=== PATIENT | female | born 1990 | race Caucasian/White ===

== ENCOUNTER 2016-12-03 13:27 | Emergency (ER) | payer OTHER ==
[~2016-12-03] VITALS: Ht 162.6 cm; Wt 54.4 kg
[~2016-12-03 13:27] MED LIST: ANTIVERT 25MG #1 PAC PO; FIORICET 50-301 EACH PO
[2016-12-03 13:32] VITALS: BP 113/76
--- NOTE | 2016-12-03 13:52 | ED INFLUENZA/URI COMPLAINT ---
History of Present Illness General Chief Complaint: General Adult Stated Complaint: LILLY, COUGH N/V/D WITH FEVER Source: patient, old records Exam Limitations: no limitations Vital Signs & Intake/Output Vital Signs & Intake/Output Vital Signs Date Time Temp Pulse Resp B/P Pulse O2 O2 Flow FiO2 Ox Delivery Rate 12/03 1332 98.2 85 20 113/76 98 Room Air Allergies Coded Allergies: NO KNOWN ALLERGIES (06/10/12) Reconcile Medications Ondansetron (Zofran Odt) 4 MG TAB.RAPDIS 1 TAB SL TID PRN NAUSEA Robitussin AC (Guaifenesin-Codeine Syrup) 200 MG-20 MG/10 ML LIQUID 10 ML PO Q6HR PRN COUGH Triage Note: PT TO ED C/O HEADACHE, COUGH, FEVER, SORE THROAT SINCE SUNDAY. SAW MD ON SUNDAY, WAS NOT GIVEN AND MEDS. PT STATES SHE STARTED WITH N/V/D LAST NIGHT. AFEBRILE. Triage Nurses Notes Reviewed? yes Onset: Abrupt Duration: day(s): (1), constant Timing: recent history Severity: moderate Severity Numbers: 7 No Modifying Factors: none Associated Symptoms: headache, nasal congestion, nasal drainage, sore throat, N/ V/D : No Patient currently breastfeeds: No HPI: 26-year-old female presents to emergency room complaining of multiple episodes of nausea vomiting and diarrhea since last night associated with sore throat and rhinorrhea congestion and generalized bodyaches for the past 4 days. She was seen by her primary care physician earlier this week and diagnosed with a virus. She's been using [id number] medications without improvement. No sick contacts at home with similar symptoms she denies any abdominal pain urinary symptoms fevers or chills. Patient reports a nonproductive cough no shortness of breath no chest pain. She denies any black or bloody stools no hematemesis no recent antibiotic use (ROBBY WILLINGHAM,LAYO) Past History Travel History Traveled to [place] past 21 day No Medical History Any Pertinent Medical History? 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 No (LAYO VILLALOBOS) Review of Systems Review of Systems Constitutional: Reports: see HPI. All Other Systems: Reviewed and Negative Comments Review of systems: See HPI, All other systems negative. Constitutional, no chills no fever, no malaise HEENT: No visual changes sore throat congestion, Cardiovascular: No chest pain , no palpitation , Skin, no rashes, no change in skin Respiratory: No dyspnea no cough no sputum GI: nausea vomiting, diarrhea, : No dysuria No hematuria, no frequency, no discharge Muscle skeletal: No joint pain, no joint swelling, no back pain, no neck pain, Neurologic: No numbness headache Psych: No stress . Heme/endocrine: No bruising no bleeding Immunology: No lymphadenopathy (LAYO VILLALOBOS) Physical Exam Physical Exam General Appearance: well developed/nourished, no apparent distress, alert, awake Ears, Nose, Throat: moist mucous membrane, hearing grossly normal, Tympanic normal, pharynx normal, nasal congestion Comments: Well-developed well-nourished person in no acute distress Head/Face: Atraumatic, no maxillary/frontal sinus tenderness, no facial swelling Eyes: PERRL, EOMI, no conjunctival injection. No nystagmus Ear:External auditory canal and Tympanic membranes clear, no erythema, no FB. Nose: atraumatic.Normal inspection: No bleeding Throat: Moist mucous membranes.Pharynx normal. No pharyngeal erythema/exudate seen. No stridor/drooling or assymetry. No swelling or edema. Neck: Supple, no lymphadenopathy, FROM Cardiovascular: Regular rate and rhythms no murmurs rubs Respiratory: No respiratory distress. Patient speaking in full complete sentences. Breath sounds clear to auscultation bilaterally: NO W/R/R Abdomen: Soft, nontender nondistended, no appreciable organomegaly. Normal bowel sounds. No rebound/guarding, Extremity: No edema, full range of motion of extremities Neuro: Alert oriented x3, motor sensory normal, There were no obvious focal neurologic abnormalities. Skin: No appreciable rash on exposed skin, skin is warm and dry. Psych: Mood and affect is normal, memory and judgment is normal. Core Measures Severe Sepsis Present: No Septic Shock Present: No (LAYO VILLALOBOS) Progress Differential Diagnosis: influenza, otitis, pneumonia, pharyngitis, sinusitis, GASTROENTERITIS, DEHYDRATION, APPY, CHOLECYSTITIS, OBSTRUCTION Plan of Care: Orders Procedure Date/time Status RAPID VIRAL INFLUENZA A 12/03 1355 Complete HUMAN BETA HCG SCREEN 12/03 135 Complete CBC WITHOUT DIFFERENTIAL 12/03 135 Complete BASIC METABOLIC PANEL 12/03 135 Complete Laboratory Tests 12/03/16 1405: Anion Gap 10, Estimated GFR > 60, BUN/Creatinine Ratio 11.7, Glucose 86, Calcium 9.5, Total Beta HCG NEGATIVE, CBC w Diff NO MAN DIFF REQ, RBC 4.22, MCV 90.7, MCH 30.4, RDW 13.2, MPV 8.2, Gran % 73.6, Lymphocytes % 11.6 L, Monocytes % 13.6 H, Eosinophils % 0.9, Basophils % 0.3, Absolute Granulocytes 6.6 H, Absolute Lymphocytes 1.0 L, Absolute Monocytes 1.2 H, Absolute Eosinophils 0.1 , Absolute Basophils 0, PUBS MCHC 33.5 Labs ordered old records reviewed patient medicated with IV fluids Zofran 4 IV 12/03/2016 3:02:26 PM discussed with patient at length all of her lab results and flu swab results. She is tolerating by mouth challenge.. I discussed close follow-up with primary care as needed prescription for Zofran Robitussin with codeine for cough. Given duration of symptoms I do not believe the patient warrants stable fluid this time, advised close follow-up return with any concerns I answered all of her questions they felt comfortable this plan (LAYO VILLALOBOS) Initial ED EKG: none (LAYO VILLALOBOS) Departure Departure Time of Disposition: 1446 Disposition: HOME OR SELF CARE Condition: Stable Clinical Impression Primary Impression: Nausea vomiting and diarrhea Referrals: DIAMANTE ASHLEY APRN (PCP/Family) Additional Instructions: ZOFRAN FOR NAUSEA. ROBITUSSIN WITH CODEINE FOR COUGH. BLAND DIET, CLEAR LIQUIDS- ADVANCE DIET TOLERATED. FOLLOW UP WITH YOUR PRIMARY CARE PHYSICIAN THIS WEEK. RETURN WITH ANY CONCERNS. THESE PRESCRIPTIONS WERE SENT TO [facility]. 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 I have also reviewed all the pertinent lab results and diagnostic results. I agree with the findings and the plan of care as documented in the PA's/ARC WELDER APPRENTICE's documentation. x I have reviewed the ED Record and agree with the PA's/ARC WELDER APPRENTICE's documentation. [] Additions or exceptions (if any) to the PAs/ARC WELDER APPRENTICE's note and plan are summarized below: [] (SHANNAN BOBO,CYNDEE)
[2016-12-03 14:17] LABS: ABSOLUTE BASOPHIL COUNT 0 /CUMM (0.0-0.2); ABSOLUTE EOSINOPHIL COUNT 0.1 /CUMM (0.0-0.7); ABSOLUTE GRANULOCYTE CT 6.6 /CUMM (1.4-6.5); ABSOLUTE MONOCYTE COUNT 1.2 /CUMM (0.10-0.60); BASOPHIL % 0.3 % (0.0-2.0); EOSINOPHIL % 0.9 % (0-5); GRANULOCYTE % 73.6 % (42.2-75.2); HEMATOCRIT 38.3 % (37-47); MEAN CORPUSCULAR HGB 30.4 PG (27.0-31.0); MEAN CORPUSCULAR HGB CONC 33.5 G/DL (33.0-37.0); MEAN CORPUSCULAR VOLUME 90.7 FL (81.0-99.0); MEAN PLATELET VOLUME 8.2 FL (7.4-10.4); PLATELET COUNT 212 /CUMM (130-400); RBC DISTRIBUTION WIDTH 13.2 % (11.5-14.5); RED BLOOD CELL CT 4.22 /CUMM (4.20-5.40); WHITE BLOOD CELL COUNT 8.9 /CUMM (4.8-10.8)
[2016-12-03] MEDS ORDERED: ZOFRAN ODT4 M1 SL (14:48)
[2016-12-03] MEDS ORDERED: GUAIFENESIN-COD10 ML PO (14:48)
== END 2016-12-03 14:58 ==
LOC: ERH 13:27
PROVIDERS: Physician Assistant Medical
DX: R11.2 Nausea with vomiting, unspecified (principal); R19.7 Diarrhea, unspecified
CPT/HCPCS: 87804; 87804-59; 96361; 96374; 96375; J1885; J2405

== ENCOUNTER 2017-11-29 11:53 | Emergency (ER) | payer OTHER ==
[~2017-11-29] VITALS: Ht 160 cm; Wt 56.7 kg
[~2017-11-29 11:53] MED LIST changes: +BENZONATATE200 M1 PO; +GUAIFENESIN-COD10 ML PO; +IBUPROFEN800 M1 PO; +ZITHROMAX250 M2 PO; +ZOFRAN ODT4 M1 SL
--- NOTE | 2017-11-29 12:02 | ED INFLUENZA/URI COMPLAINT ---
History of Present Illness General Chief Complaint: Headache Stated Complaint: LILLY/ LEFT SIDE FACIAL NUMBNESS Source: patient Exam Limitations: no limitations Vital Signs & Intake/Output Vital Signs & Intake/Output Vital Signs Date Time Temp Pulse Resp B/P B/P Pulse O2 O2 Flow FiO2 Mean Ox Delivery Rate 11/29 1353 97.5 54 18 105/53 99 11/29 1231 99 Room Air 11/29 1157 97.4 74 20 113/72 98 Room Air Allergies Coded Allergies: NO KNOWN ALLERGIES (06/10/12) Reconcile Medications Azithromycin (Zithromax) 250 MG TABLET 1 DP PO AD URI 2 the first day followed by 1 for days 2-5 Benzonatate 200 MG CAPSULE 1 CAP PO TIDPRN COUGH Fluticasone Propionate (Flonase Allergy Relief) 50 MCG/ACTUATION SPRAY.SUSP 2 SPRAY LEXUS DAILY PRN CONGESTION Ibuprofen 800 MG TABLET 1 TAB PO TID FEVER/CHILLS Meloxicam (Mobic) 15 MG TABLET 1 TAB PO DAILY PRN HEADACHE Ondansetron (Zofran Odt) 4 MG TAB.RAPDIS 1 TAB SL TID PRN NAUSEA Robitussin AC (Guaifenesin-Codeine Syrup) 200 MG-20 MG/10 ML LIQUID 10 ML PO Q6HR PRN COUGH Triage Note: PT TO ED "I'VE BEEN SICK FOR A FEW DAYS, I FEEL WEIRD INSIDE". C/O SORE THROAT, HEADACHE, LEFT SIDED FACIAL TINGLING. AFEBRILE. Triage Nurses Notes Reviewed? yes Onset: Gradual Duration: getting worse Timing: recent history Severity: moderate Severity Numbers: 5 : No Patient currently breastfeeds: No HPI: Patient is a 27-year-old female with a past medical history benign left breast cyst and a remote history of appendectomy who presents emergency room with concerns of multiple complaints patient complains of a chronic history of right upper quadrant pain states that the past 3 days the right upper quadrant pain is made worse however patient denies any change in symptoms upon eating or drinking , patient is also complaining of a three-day history of headache nasal congestion head congestion and productive cough Denies any smoking history denies any similar sick contacts denies any fever chills nausea vomiting dysuria hematuria vaginal bleeding or discharge. Last mental. Was approximated 3 weeks ago however patient states that she has not had sexual intercourse "for some time" l , Patient hasn't taken any medications for sentences has not followed up with outpatient evaluation of her chronic right upper quadrant pain. Denies any significant alcohol use however has been taking ibuprofen for the past 3 weeks for her pain Past History Travel History Traveled to [place] past 21 day No Medical History Any Pertinent Medical History? 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 No Review of Systems Review of Systems Constitutional: Reports: see HPI. Denies: chills, fever. EENTM: Reports: see HPI, nasal congestion. Respiratory: Reports: see HPI, cough. Cardiovascular: Reports: no symptoms. GI: Reports: see HPI, abdominal pain. Genitourinary: Reports: no symptoms. Musculoskeletal: Reports: no symptoms. Skin: Reports: no symptoms. Neurological/Psychological: Reports: see HPI, headache. Hematologic/Endocrine: Reports: no symptoms. Immunologic/Allergic: Reports: no symptoms. All Other Systems: Reviewed and Negative Physical Exam Physical Exam General Appearance: no apparent distress, alert, thin Head: atraumatic Eyes: Bilateral: normal appearance, PERRL, EOMI. Ears, Nose, Throat: moist mucous membrane, hearing grossly normal, Tympanic normal, pharynx normal, nasal congestion Neck: normal inspection, supple, full range of motion Respiratory: normal breath sounds, chest non-tender, no respiratory distress Cardiovascular: regular rate/rhythm Peripheral Pulses: 2+ radial (R) Gastrointestinal: normal bowel sounds, soft, non-tender Extremities: normal inspection, normal capillary refill, normal range of motion, no edema Skin: intact, normal color, warm/dry Core Measures Sepsis Present: No Sepsis Focused Exam Completed? No Progress Differential Diagnosis: influenza, meningitis, neutropenia, otitis, pneumonia, pharyngitis, sinusitis Plan of Care: Orders Procedure Date/time Status LIPASE 11/29 1237 Complete HUMAN BETA HCG SCREEN 11/29 1237 Complete DIRECT BILIRUBIN 11/29 1237 Complete COMPREHENSIVE METABOLIC PANEL 11/29 1237 Complete CBC WITHOUT DIFFERENTIAL 11/29 1237 Complete AMYLASE 11/29 1237 Complete RAPID VIRAL INFLUENZA A 11/29 1201 Complete THROAT CULTURE W/QUICK STREP 11/29 1201 Active Laboratory Tests 11/29/17 1306: Anion Gap 14, Estimated GFR > 60, BUN/Creatinine Ratio 20.0, Glucose 79, Calcium 9.6, Total Bilirubin 0.9, Direct Bilirubin 0.2, AST 23, ALT 32, Alkaline Phosphatase 46, Total Protein 7.3, Albumin 4.4, Globulin 2.9, Albumin/Globulin Ratio 1.5, Amylase 49, Lipase 59, Total Beta HCG NEGATIVE, CBC w Diff NO MAN DIFF REQ, RBC 4.36, MCV 89.7, MCH 30.9, RDW 13.1, MPV 8.7, Gran % 71.1, Lymphocytes % 20.5, Monocytes % 7.0, Eosinophils % 0.9, Basophils % 0.5, Absolute Granulocytes 6.5, Absolute Lymphocytes 1.9, Absolute Monocytes 0.6, Absolute Eosinophils 0.1, Absolute Basophils 0, PUBS MCHC 34.5 Microbiology 11/29 1204 NASOPHARYN: Influenza Virus A & B Rapid Smear - COMP Other differential diagnosis included pancreatitis cholangitis cholecystitis gastritis viral syndrome Patient noted resting comfortably at bedside distress afebrile cranial nerves intact patient will be treated for concerns of migraine and viral syndrome however ultrasound and blood work will be obtained for right upper quadrant chronic pain. Patient has no concerns of right lower quadrant pain or appendicitis. Patient has unremarkable blood work are reviewed blood work with patient Patient was given outpatient ultrasound and will be sent to Diamante PARRA APRN , Patient also had complete resolution of headache and pain with ibuprofen administered in the hospital Initial ED EKG: none Departure Departure Disposition: HOME OR SELF CARE Condition: Stable Clinical Impression Primary Impression: Viral syndrome Secondary Impressions: Abdominal pain, Headache Referrals: Diamante Parra APRN (PCP/Family) Additional Instructions: As discussed begin the prescription of meloxicam for pain and inflammation, please follow-up with her primary care doctor next week on Sunday if no better please call the department of radiology central scheduling number at [phone] FOR AN ultrasound of your abdomen this result will be sent to your primary care PROVIDER DIAMANTE PARRA, if symptoms worsen return to the emergency room Prescriptions waiting at [facility]. Begin the prescription of Flonase for your congestion began [id number] Sudafed for congestion Departure Forms: Customer Survey General Discharge Information Prescriptions: Current Visit Scripts Meloxicam (Mobic) 1 TAB PO DAILY PRN HEADACHE #15 TAB Fluticasone Propionate (Flonase Allergy Relief) 2 SPRAY LEXUS DAILY PRN CONGESTION #1 BOT
[2017-11-29 13:13] LABS: ABSOLUTE BASOPHIL COUNT 0 /CUMM (0.0-0.2); ABSOLUTE EOSINOPHIL COUNT 0.1 /CUMM (0.0-0.7); ABSOLUTE GRANULOCYTE CT 6.5 /CUMM (1.4-6.5); ABSOLUTE LYMPH COUNT 1.9 /CUMM (1.2-3.4); ABSOLUTE MONOCYTE COUNT 0.6 /CUMM (0.10-0.60); BASOPHIL % 0.5 % (0.0-2.0); EOSINOPHIL % 0.9 % (0-5); GRANULOCYTE % 71.1 % (42.2-75.2); HEMATOCRIT 39.1 % (37-47); MEAN CORPUSCULAR HGB 30.9 PG (27.0-31.0); MEAN CORPUSCULAR HGB CONC 34.5 G/DL (33.0-37.0); MEAN CORPUSCULAR VOLUME 89.7 FL (81.0-99.0); MEAN PLATELET VOLUME 8.7 FL (7.4-10.4); PLATELET COUNT 242 /CUMM (130-400); RBC DISTRIBUTION WIDTH 13.1 % (11.5-14.5); RED BLOOD CELL CT 4.36 /CUMM (4.20-5.40); WHITE BLOOD CELL COUNT 9.1 /CUMM (4.8-10.8)
[2017-11-29 13:53] VITALS: BP 105/53
[2017-11-29] MEDS ORDERED: MOBIC15 M1 PO (14:06)
[2017-11-29] MEDS ORDERED: FLONASE ALLERG9.9 ML NAS (14:09)
== END 2017-11-29 14:53 ==
LOC: ERH 11:53
PROVIDERS: Physician Assistant
DX: B34.9 Viral infection, unspecified (principal); R51 Headache; R10.11 Right upper quadrant pain
CPT/HCPCS: 87804; 87804-59